=== PATIENT | female | born 1955 | race African-American/Black ===

== ENCOUNTER 2016-11-26 22:13 | Emergency (ER) | payer OTHER ==
[~2016-11-26] VITALS: Ht 162.6 cm; Wt 81.6 kg
[~2016-11-26 22:13] MED LIST: ATENOLOL50 M1 PO; COZAAR25 MG PO; DIOVAN320 MG PO; METHOCARBAMOL500 M1 PO; NORCO 10/325 MG1 TAB PO; PRAZOSIN HCL1 M1 PO; PRILOSEC40 MG PO; SOMA350 MG PO; VICODIN ES 7501 TA1 PO
[2016-11-26 22:44] VITALS: BP 155/95
--- NOTE | 2016-11-26 23:18 | NUR ---
AMBULATED TO ER BED 4
--- NOTE | 2016-11-26 23:24 | NUR ---
PATIENT PRESENTS TO ED WITH great rt toe pain . PT DENIES N/V/D; SKIN IS PINK/WARM/DRY; AAOX4 WITH EVEN AND STEADY GAIT; LUNGS CLEAR BL; HR EVEN AND REGULAR; PT DENIES ANY FEVER, CP, SOB, OR COUGH AT THIS TIME; PATIENT STATES PAIN OF 7/10 AT THIS TIME; VSS; PATIENT POSITIONED FOR COMFORT; HOB ELEVATED; BEDRAILS UP X2; BED DOWN. ER MD MADE AWARE OF PT STATUS.
[2016-11-27] MEDS ORDERED: KETOROLAC 60 MG/2 ML VIAL IM ONE (00:10)
--- NOTE | 2016-11-27 00:47 | NUR ---
Patient discharged with v/s stable. Written and verbal after care instructions given and explained. Patient verbalized understanding. Ambulatory with steady gait. All questions addressed prior to discharge. Advised to follow up with PMD.
[2016-11-27 00:53] VITALS: BP 124/76
[2017-03-31] MEDS ORDERED: COLACE100 M1 PO (11:26)
[2017-03-31] MEDS ORDERED: SIMETHICONE80 M2 PO (11:26)
[2017-03-31] MEDS ORDERED: METAMUCIL PACK3.4 GM PO (11:26)
[2017-03-31] MEDS ORDERED: COZAAR25 M1 PO (11:26)
[2017-03-31] MEDS ORDERED: K-DUR10 MEQ PO (11:26)
[2017-03-31] MEDS ORDERED: HCTZ PO (11:26)
== END 2016-11-27 00:53 | disposition home or self-care (01) ==
LOC: MED 22:13
DX: M79.674 Pain in right toe(s) (principal); M79.675 Pain in left toe(s); K21.9 Gastro-esophageal reflux disease without esophagitis; I10 Essential (primary) hypertension; Z98.890 Other specified postprocedural states
CPT/HCPCS: 96372; 99283; J1885

== ENCOUNTER 2016-12-04 19:08 | Emergency (ER) | payer OTHER ==
--- NOTE | 2016-12-04 20:34 | NUR ---
PATIENT LEFT WITHOUT BEING SEEN BY . NO FURTHER PROVIDED FOR PATIENT.
[2017-03-31] MEDS ORDERED: METAMUCIL PACK3.4 GM PO (11:26)
[2017-03-31] MEDS ORDERED: HCTZ PO (11:26)
[2017-03-31] MEDS ORDERED: COZAAR25 M1 PO (11:26)
[2017-03-31] MEDS ORDERED: K-DUR10 MEQ PO (11:26)
[2017-03-31] MEDS ORDERED: SIMETHICONE80 M2 PO (11:26)
[2017-03-31] MEDS ORDERED: COLACE100 M1 PO (11:26)
== END 2016-12-04 20:34 | disposition left against medical advice (07) ==
LOC: MED 19:08
DX: M79.671 Pain in right foot (principal); K21.9 Gastro-esophageal reflux disease without esophagitis; I10 Essential (primary) hypertension; Z53.21 Procedure and treatment not carried out due to patient leaving prior to being seen by health care provider

== ENCOUNTER 2016-12-07 13:08 | Emergency (ER) | payer OTHER ==
[~2016-12-07] VITALS: Ht 162.6 cm; Wt 83.5 kg
[2016-12-07 13:20] VITALS: BP 160/93
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
--- NOTE | 2016-12-07 13:25 | NUR ---
PT AMBULATED TO BED 6 AT THIS TIME.
--- NOTE | 2016-12-07 13:41 | NUR ---
ER MD DR. LEOS EVALUATING PT AT BEDSIDE.
[2016-12-07] MEDS ORDERED: IBUPROFEN 800 MG TAB PO ONE (14:35)
[2016-12-07 16:35] VITALS: BP 148/91
--- NOTE | 2016-12-07 16:35 | NUR ---
Patient discharged with BP 148/91; DENIES HEADACHE OR DIZZINESS AT THIS TIME; ER MD DR LEOS AWARE. Written and verbal after care instructions given and explained. Patient alert, oriented and verbalized understanding of instructions. Ambulatory with steady gait. All questions addressed prior to discharge. ID band removed. Patient advised to follow up with PMD. Rx of MOTRIN, BACITRACIN & KEFLEX given. Patient educated on indication of medication including possible reaction and side effects. Opportunity to ask questions provided and answered.
[2017-03-31] MEDS ORDERED: HCTZ PO (11:26)
[2017-03-31] MEDS ORDERED: COLACE100 M1 PO (11:26)
[2017-03-31] MEDS ORDERED: SIMETHICONE80 M2 PO (11:26)
[2017-03-31] MEDS ORDERED: METAMUCIL PACK3.4 GM PO (11:26)
[2017-03-31] MEDS ORDERED: COZAAR25 M1 PO (11:26)
[2017-03-31] MEDS ORDERED: K-DUR10 MEQ PO (11:26)
== END 2016-12-07 16:35 | disposition home or self-care (01) ==
LOC: MED 13:15
DX: Z48.01 Encounter for change or removal of surgical wound dressing (principal); K21.9 Gastro-esophageal reflux disease without esophagitis; I10 Essential (primary) hypertension
CPT/HCPCS: 36415; 73630; 80048; 85025; 90471; 90715; 99285; Q0092

== ENCOUNTER 2017-01-25 12:00 | Emergency (ER) | payer OTHER ==
[~2017-01-25] VITALS: Ht 160 cm; Wt 83.5 kg
[2017-01-25 12:02] VITALS: BP 110/75
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
--- NOTE | 2017-01-25 14:27 | NUR ---
DR PAYNE AT BEDSIDE
[2017-01-25] MEDS ORDERED: HYDROmorphone PFS 2 MG/ML SYR IM ONE (14:35)
--- NOTE | 2017-01-25 14:53 | NUR ---
PT LYING ON BED COMFORTABLY;NO ACUTE DISTRESS NOTED AT THIS TIME;WILL CONTINUE TO MONITOR PT.
[2017-01-25 15:53] VITALS: BP 131/77
[2017-03-31] MEDS ORDERED: K-DUR10 MEQ PO (11:26)
[2017-03-31] MEDS ORDERED: COLACE100 M1 PO (11:26)
[2017-03-31] MEDS ORDERED: COZAAR25 M1 PO (11:26)
[2017-03-31] MEDS ORDERED: HCTZ PO (11:26)
[2017-03-31] MEDS ORDERED: SIMETHICONE80 M2 PO (11:26)
[2017-03-31] MEDS ORDERED: METAMUCIL PACK3.4 GM PO (11:26)
== END 2017-01-25 15:52 | disposition home or self-care (01) ==
LOC: MED 12:00
DX: S16.1XXA Strain of muscle, fascia and tendon at neck level, initial encounter (principal); M54.42 Lumbago with sciatica, left side; K21.9 Gastro-esophageal reflux disease without esophagitis; I10 Essential (primary) hypertension; V89.2XXA Person injured in unspecified motor-vehicle accident, traffic, initial encounter; Y93.89 Activity, other specified; Y92.89 Other specified places as the place of occurrence of the external cause; Y99.8 Other external cause status; Z79.899 Other long term (current) drug therapy
CPT/HCPCS: 72050; 72072; 72110; 96372; 99284; J1170

== ENCOUNTER 2017-03-10 20:08 | Emergency (ER) | payer OTHER ==
[~2017-03-10] VITALS: Ht 162.6 cm; Wt 83.9 kg
[~2017-03-10 20:08] MED LIST changes: +ACET-3457 PO; +ATEN50TA2 PO; -ATENOLOL50 M1 PO; +CARI350T PO; -COZAAR25 MG PO; -DIOVAN320 MG PO; +LOSA25TA14 PO; +METH500T18 PO; -METHOCARBAMOL500 M1 PO; -NORCO 10/325 MG1 TAB PO; +OMEP40EC1 PO; +PRAZ1CAP PO; -PRAZOSIN HCL1 M1 PO; -PRILOSEC40 MG PO; -SOMA350 MG PO; +VALS320T2 PO; -VICODIN ES 7501 TA1 PO
[2017-03-10 20:12] VITALS: BP 161/101
--- NOTE | 2017-03-10 20:23 | NUR ---
PT TAKEN TO BED 3
--- NOTE | 2017-03-10 20:32 | NUR ---
61Y BIB SELF C/O AB PAIN X 1 WEEK, BUT GOT WORSE TODAY. PT STATES SHE HAD 3 VOMIT EPISODES NO BLOOD, 8/10 PAIN. MEDICAL HX HTN AND SKELTAL BULGES. PT IS AA0X4, DENIES ANY SOB, CP, AT THE MOMENT. BREATHING IS UNLABORED.
--- NOTE | 2017-03-10 21:07 | NUR ---
Dr. Mcdonald evaluating patient at bedside.
--- NOTE | 2017-03-10 21:46 | NUR ---
Ultrasound at bedside.
[2017-03-10] MEDS: ONDANSETRON 4 MG ODT PO ONE (22:48)
[2017-03-10 23:00] VITALS: BP 141/88
--- NOTE | 2017-03-10 23:01 | NUR ---
Patient discharged with v/s stable. Written and verbal after care instructions given and explained. Patient alert, oriented and verbalized understanding of instructions. Ambulatory with steady gait. All questions addressed prior to discharge. ID band removed. Patient advised to follow up with PMD. Rx of ZOFRAN ODT given. Patient educated on indication of medication including possible reaction and side effects. Opportunity to ask questions provided and answered.
== END 2017-03-10 23:01 | disposition home or self-care (01) ==
LOC: MED 20:08
DX: A08.4 Viral intestinal infection, unspecified (principal); K21.9 Gastro-esophageal reflux disease without esophagitis; I10 Essential (primary) hypertension
CPT/HCPCS: 76705; 81002; 81025; 99284; Q0092; S0119

== ENCOUNTER 2017-03-30 02:47 | Inpatient (IN) | payer OTHER ==
[~2017-03-30] VITALS: Ht 162.6 cm; Wt 82.6 kg
[2017-03-30 02:49] VITALS: BP 146/79
--- NOTE | 2017-03-30 03:06 | NUR ---
PT TAKEN TO BED 7
--- NOTE | 2017-03-30 03:10 | NUR ---
PT IS 61/F BIB SELF TO ED WITH C/O CHEST PAIN, SOB, NAUSEA, VOMITING, AND COSTIPATION X 6 DAYS. PT STATES MED HX HTN, HIATAL HERNIA. DOES NOT KNOW NAME OF MEDS. DENIES D; SKIN IS PINK/WARM/DRY; AAOX4 WITH EVEN AND STEADY GAIT; LUNGS CLEAR BL; HR EVEN AND REGULAR; PT DENIES ANY FEVER, SOB, OR COUGH AT THIS TIME; PATIENT STATES PAIN OF 9/10 AT THIS TIME; VSS; PATIENT POSITIONED FOR COMFORT; HOB ELEVATED; BEDRAILS UP X2; BED DOWN. ER MD MADE AWARE OF PT STATUS.
--- NOTE | 2017-03-30 03:17 | NUR ---
Dr. Sanchez evaluating patient at bedside.
[2017-03-30] MEDS ORDERED: MAGNESIUM CITRATE 300 ML BTL PO ONE (03:20)
[2017-03-30] MEDS ORDERED: ONDANSETRON 4 MG/2 ML VIAL IVP ONE (03:20)
[2017-03-30] MEDS ORDERED: NACL 0.9% 1,000 ML IV ONE (03:20)
--- NOTE | 2017-03-30 04:07 | NUR ---
PT TAKEN TO XRAY
[2017-03-30 04:09] LABS: HEMATOCRIT 35.6 % (36-48); MEAN CORPUSCULAR HEMOGLOBIN 31 pg (27-31); MEAN CORPUSCULAR HGB CONC 34 g/dL (33-37); MEAN CORPUSCULAR VOLUME 92 fL (80-94); PLATELET COUNT (AUTO) 266 K/uL (140-450); RED BLOOD CELL COUNT(AUTO) 3.88 MIL/uL (4.20-5.40); RED CELL DISTRIBUTION WIDTH 13.5 % (11.6-13.7); WHITE BLOOD COUNT (AUTO) 10.9 K/uL (4.8-10.8)
[2017-03-30 04:14] LABS: LYMPHOCYTES % (MANUAL) 29 % (20-46); MONOCYTES % (MANUAL) 4 % (5-12); NEUTROPHILS % (MANUAL) 67 (43-65)
[2017-03-30 04:15] LABS: ALBUMIN 3.3 g/dL (3.4-5.0); ANION GAP 6.3 (8-16); CALCIUM 9.1 mg/dL (8.5-10.1); CREATININE 1.2 mg/dL (0.6-1.3); TOTAL BILIRUBIN 0.1 mg/dL (0.0-1.0); TOTAL PROTEIN, SERUM 7.4 g/dL (6.4-8.2)
--- NOTE | 2017-03-30 04:20 | NUR ---
PT RETURN FROM XRAY
[2017-03-30 04:21] LABS: CARBON DIOXIDE 42.1 mmol/L (21-32); POTASSIUM 2.4 mmol/L (3.5-5.1)
--- NOTE | 2017-03-30 04:30 | NUR ---
PT ASSISTED BACK IN BED FROM RESTROOM. NO SOB NOTED AT THIS TIME
[2017-03-30] MEDS ORDERED: POTASSIUM CHL 40 MEQ/ D5-1/2NS 1,000 ML IV ONE (04:40)
--- NOTE | 2017-03-30 05:07 | NUR ---
PT RETURN FROM CT
--- NOTE | 2017-03-30 05:16 | NUR ---
PT MOVD TO BED 5
--- NOTE | 2017-03-30 05:22 | NUR ---
PT RESTING IN BED. NO SOB NOTED AT THIS TIME.
--- NOTE | 2017-03-30 05:34 | NUR ---
PRE HOUSE SUP MOHAMMED, PT IS ON ER HOLD UNTIL 6AM. ER MD DR PAYNE NOTIFIED
[2017-03-30] MEDS ORDERED: ACETAMINOPHEN 325 MG TAB PO PRN (05:35)
[2017-03-30] MEDS ORDERED: HYDROcodone/APAP 5/325 MG 1 TAB TAB PO PRN (05:35)
[2017-03-30] MEDS: DEXT 5% /NACL 0.9% 1,000 ML IV SCH ×2 (05:35→15:51)
[2017-03-30] MEDS ORDERED: LORazepam 2 MG/ML VIAL IVP PRN (05:35)
[2017-03-30] MEDS ORDERED: ONDANSETRON 4 MG/2 ML VIAL IVP PRN (05:35)
--- NOTE | 2017-03-30 06:21 | NUR ---
Patient will be admitted to care of DR CAMPOS. Admited to TELE. Will go to [id number]. Belongings list completed. Report to KAYDEN MORENO.
--- NOTE | 2017-03-30 06:30 | NUR ---
ADMITTED THIS 61 Y/O FEMALE FROM ER VIA [facility], WITH A DX OF ABDOMINAL PAIN WITH HYPOKALEMIA. ON TELE MONITOR. PT AAOX4. RESPIRATION EVEN AND UNLABORED, DENIES PAIN AT THIS TIME. NO S/S OF RESP DISTRESS. IV ACCESS TO LEFT HAND GAUGE 22, NO S/S OF INFILTRATION. PT AMBULATORY WITH STEADY GAIT. SKIN INTACT. ORIENTED PT TO CALL LIGHT, BED, PHONE, TV, BATHROOM, VISITING HOURS. MRSA COLLECTED AND SENT TO LAB. WILL ENDORSE TO NEXT SHIFT FOR THE COMPLETION OF ADMISSION. VS: 97.7 84 19 146/87 96% ROOM AIR.
--- NOTE | 2017-03-30 07:05 | NUR ---
RECEIVED PT REPORT AT BEDSIDE FROM NIGHT NURSE. PT IS AAOX4 AND SHOWS NO S/S OF DISTRESS NOTED ON ROOM AIR. PT HAS NOTED IV ON THE L HAND WITH IVF RUNNING. PT SKIN IS INTACT. PT BED IS LOWERED WITH CALL LIGHT WITHIN REACH.
[2017-03-30 08:23] VITALS: BP 133/68
[2017-03-30] MEDS ORDERED: ACETAMINOPHEN PO SCH (09:00)
[2017-03-30] MEDS ORDERED: LOSARTAN 25 MG TAB PO SCH (09:00)
[2017-03-30] MEDS ORDERED: [UNRECOGNIZED DRUG - OTHER] PO SCH (09:00)
[2017-03-30] MEDS ORDERED: VALSARTAN 80 MG TAB PO SCH (09:00)
--- NOTE | 2017-03-30 09:30 | NUR ---
PATIENT HAS BEEN SCREENED AND CATEGORIZED MODERATE NUTRITION RISK. PATIENT WILL BE SEEN WITHIN 3-5 DAYS OF ADMISSION. 04/02/17 - 04/04/17 GUERR[address] FIERRO MBA, RD
--- NOTE | 2017-03-30 09:30 | NUR ---
ADMINISTERED SCHEDULED MEDICATIONS. PT TOLERATED WELL. PT SHOWS NO S/S OF DISTRESS ON ROOM AIR.
[2017-03-30] MEDS: METHOCARBAMOL 500 MG TAB PO SCH ×2 (09:39→20:18)
[2017-03-30] MEDS: ATENOLOL 50 MG TAB PO SCH (09:40)
[2017-03-30] MEDS: HYDROcodone/APAP 5/325 MG 1 TAB TAB PO SCH ×2 (09:40→20:30)
[2017-03-30] MEDS: PRAZOSIN 1 MG CAP PO SCH ×4 (09:41→16:36)
[2017-03-30] MEDS: CARISOPRODOL 350 MG TAB PO SCH (09:41)
[2017-03-30] MEDS: PANTOPRAZOLE 40 MG TABEC PO SCH (09:41)
[2017-03-30] MEDS ORDERED: POTASSIUM CHLORIDE 10 MEQ TABER PO SCH (10:50)
[2017-03-30 12:00] VITALS: BP 110/76
--- NOTE | 2017-03-30 12:40 | NUR ---
PT AMB TO RESTROOM WITH STEADY GAIT. PT HAD A BM.
[2017-03-30] MEDS ORDERED: SIMETHICONE 80 MG TAB.CHEW PO SCH (12:45)
--- NOTE | 2017-03-30 12:50 | NUR ---
ADMINISTERED SCHEDULED MEDICATION. PT TOLERATED WELL. PT HAD ABD PAIN AND AMB TO RESTROOM AGAIN.
--- NOTE | 2017-03-30 12:52 | NUR ---
DID NOT ADMINISTER SCHEDULED MEDICATION OF MINIPRESS PRAZOSIN 1 MG PO. PT BLOOD PRESSURE WAS 100/64 HR 81. PT REFUSED TO TAKE BLOOD PRESSURE MED.
[2017-03-30] MEDS: MORPHINE SULFATE 2 MG/ML SYR IVP PRN ×2 (14:00→20:19)
--- NOTE | 2017-03-30 14:00 | NUR ---
PT C/O PAIN 7/10 IN THE ABD. ADMINISTERED PRN PAIN MED. PT SHOWS NO S/S OF DISTRESS ON ROOM AIR.
--- NOTE | 2017-03-30 15:26 | NUR ---
PT IN BED TALKING ON THE PHONE. PT SHOWS NO S/S OF DISTRESS NOTED.
[2017-03-30 16:03] VITALS: BP 134/80
[2017-03-30] MEDS: PSYLLIUM 12.2 GM/PKT PO SCH (16:06)
--- NOTE | 2017-03-30 16:06 | NUR ---
PT REFUSE METAMUCIL SCHEDULED MEDICATION. PT STATES SHE HAS GONE TO THE RESTROOM AT LEAST 10 TIMES THIS MORNING.
--- NOTE | 2017-03-30 17:43 | NUR ---
PT IS IN BED AND SHOWS NO S/S OF DISTRESS ON ROOM AIR.
--- NOTE | 2017-03-30 18:50 | NUR ---
PAGED DR Adam CAMPOS WILL WAIT FOR CALL BACK.
--- NOTE | 2017-03-30 18:50 | NUR ---
PT BEING SEEN BY DR COLLINS. ADVISES TO LET DR Adam CAMPOS KNOW HE RECOMMENDS ADDITIONAL POTASSIUM ORDERS FOR PT K OF 2.4.
--- NOTE | 2017-03-30 19:20 | NUR ---
GAVE REPORT TO NIGHT NURSE. PT ENDORSED IN STABLE CONDITION.
--- NOTE | 2017-03-30 19:25 | NUR ---
RECEIVED PT AWAKE PRESENTLY FINISHING HER DINNER, TOLERATING WELL, NO N/V NOTED, IVF INFUSING WELL, PLAN OF CARE DISCUSSED, SAFETY MEASURES IN PLACE, CALL LIGHT WITHIN REACH.
--- NOTE | 2017-03-30 19:35 | NUR ---
DR Donato CAMPOS CALLED BACK. RECEIVED ORDERS. WILL FOLLOW THROUGH. LUIS MONIQUE IS AWARE.
[2017-03-30] MEDS ORDERED: KCL 20 MEQ/WATER INJ PREMIX 300 ML IV SCH (19:40)
[2017-03-30] MEDS: POTASSIUM CHLORIDE 10 MEQ TABER PO SCH (20:18)
--- NOTE | 2017-03-30 20:30 | NUR ---
DUE PO MEDICATIONS ADMINISTERED, MEDICATED PRN FOR PAIN WITH MORPHINE IVP, 1ST BAG OF 20 MEQ K-RIDER STARTED, MONITORED CLOSELY.
[2017-03-30] MEDS ORDERED: DOCUSATE SODIUM 100 MG GELCAP PO SCH (21:00)
--- NOTE | 2017-03-30 21:30 | NUR ---
COMPLAINING OF BURNING SENSATION ON THE IV SITE DUE TO K-RIDER, RATE DECREASE FOR NOW, AMBULATORY TO BR WITH STEADY GAIT, MONITORED CLOSELY.
[2017-03-31] VITALS: BP 125/76
--- NOTE | 2017-03-31 00:30 | NUR ---
2ND BAG OF 20 MEQ K-RIDER STARTED, MONITORED CLOSELY.
--- NOTE | 2017-03-31 02:36 | NUR ---
3RD BAG OF 20 MEQ K-RIDER STARTED, MONITORED CLOSELY.
[2017-03-31] MEDS: DEXT 5% /NACL 0.9% 1,000 ML IV SCH ×2 (02:49→11:35)
--- NOTE | 2017-03-31 05:30 | NUR ---
K-RIDER DONE, ENVIRONMENTAL PROJECT MANAGER MARITO MADE AWARE TO DRAW BMP 2 HOURS AFTER K-RIDER WHICH IS 0725, WILL ENDORSE, NO EPISODE OF LOOSE STOOL THE WHOLE SHIFT, MONITORED CLOSELY.
--- NOTE | 2017-03-31 07:10 | NUR ---
PT SLEEPING, NO SIGNS OF DISTRESS, REPORT GIVEN TO KAYDEN SHANKAR FOR CONTINUITY OF CARE.
--- NOTE | 2017-03-31 07:12 | NUR ---
RECEIVED PT FROM NIGHT NURSE AT BEDSIDE. PT IS SLEEPING AND SHOWS NO S/S OF DISTRESS ON ROOM AIR. PT HAS IVF RUNNING ON THE R HAND. PT SKIN IS INTACT. PT BED IS LOWERED WITH CALL LIGHT WITHIN REACH.
[2017-03-31 08:00] VITALS: BP 146/91
[2017-03-31 08:25] LABS: BASOPHILS # (AUTO) 0.1 K/uL (0.00-0.22); BASOPHILS % (AUTO) 1.3 % (0.0-2.0); EOSINOPHILS # (AUTO) 0.2 K/uL (0-0.4); HEMATOCRIT 33.6 % (36-48); HEMOGLOBIN 10.9 g/dL (12.0-16.0); LYMPHOCYTES # (AUTO) 2.6 K/uL (2.5-16.5); LYMPHOCYTES % (AUTO) 32.2 % (20.5-51.1); MEAN CORPUSCULAR HEMOGLOBIN 30 pg (27-31); MEAN CORPUSCULAR HGB CONC 32 g/dL (33-37); MEAN CORPUSCULAR VOLUME 93 fL (80-94); MONOCYTES # (AUTO) 0.6 K/uL (0.8-1.0); NEUTROPHILS # (AUTO) 4.7 K/uL (1.8-7.7); NEUTROPHILS % (AUTO) 56.5 % (42.2-75.2); PLATELET COUNT (AUTO) 231 K/uL (140-450); RED BLOOD CELL COUNT(AUTO) 3.62 MIL/uL (4.20-5.40); RED CELL DISTRIBUTION WIDTH 13.7 % (11.6-13.7); WHITE BLOOD COUNT (AUTO) 8.2 K/uL (4.8-10.8)
[2017-03-31] MEDS: PSYLLIUM 12.2 GM/PKT PO SCH ×2 (08:56→12:00)
[2017-03-31] MEDS: ATENOLOL 50 MG TAB PO SCH (08:57)
[2017-03-31] MEDS: PRAZOSIN 1 MG CAP PO SCH (08:57)
[2017-03-31] MEDS: PANTOPRAZOLE 40 MG TABEC PO SCH (08:57)
[2017-03-31] MEDS: HYDROcodone/APAP 5/325 MG 1 TAB TAB PO SCH (08:58)
[2017-03-31] MEDS: METHOCARBAMOL 500 MG TAB PO SCH (08:58)
[2017-03-31] MEDS ORDERED: HYDROCHLOROTHIAZIDE 25 MG TAB PO SCH (09:00)
[2017-03-31] MEDS ORDERED: LOSARTAN 25 MG TAB PO SCH (09:00)
--- NOTE | 2017-03-31 09:00 | NUR ---
ADMINISTERED SCHEDULED MEDICATIONS. PT TOLERATED WELL. PT DENIES PAIN. PT IS AAOX4 AND RESTING IN BED COMFORTABLY. PT SHOWS NO S/S OF DISTRESS NOTED ON ROOM AIR.
[2017-03-31 09:16] LABS: ANION GAP 8.9 (8-16); CALCIUM 7.9 mg/dL (8.5-10.1); CARBON DIOXIDE 33.8 mmol/L (21-32); POTASSIUM 3.7 mmol/L (3.5-5.1)
[2017-03-31] MEDS: POTASSIUM CHLORIDE 10 MEQ TABER PO SCH (09:22)
[2017-03-31] MEDS: CARISOPRODOL 350 MG TAB PO SCH (09:23)
[2017-03-31] MEDS ORDERED: ORE25 PO (11:26)
[2017-03-31] MEDS ORDERED: POTA10TA10 PO (11:26)
[2017-03-31] MEDS ORDERED: SIME80CT27 PO (11:26)
[2017-03-31] MEDS ORDERED: METPCK PO (11:26)
[2017-03-31] MEDS ORDERED: DOCU-67 PO (11:26)
[2017-03-31] MEDS ORDERED: LOSA25TA1 PO (11:26)
--- NOTE | 2017-03-31 11:45 | NUR ---
PT STATED SHE WANTED TO LEAVE AND CHANGE ROOMS. PT WAS SEEN BY DR Adam CAMPOS AND WAS NOTIFIED SHE WAS OKAY TO BE DISCHARGED. PT STATES "THESE PEOPLE ARE UNPROFESSIONAL". RN STATED PT TO CALM DOWN AND THAT I WOULD BE HERE GET HER THINGS SITUATED FOR HER DISCHARGE. PT REFUSED AND SAID " I WILL DO IT ON MY OWN."
--- NOTE | 2017-03-31 12:10 | NUR ---
PT WAS DISCHARGED. PT REFUSED TO SIGN ALL DISCHARGE PAPERWORK. PT WAS GIVEN DISCHARGE INSTRUCTIONS AND PRESCRIPTIONS. PT DID NOT WANT TO HAVE EACH DISCHARGE PAPERWORK EXPLAINED. I BRIEFLY WENT OVER NEW PRESCRIPTIONS EDUCATION. PT WAS GIVEN MONOGRAPH OF EACH NEW MEDICATIONS SHE WAS PRESCRIBED. ALL BELONGINGS AND PRESCRIPTIONS IN PATIENTS POSSESSION. IV WAS DISCONTINUED WITH CANNULA INTACT. OFFERED PATIENT WHEELCHAIR PT REFUSED. I ASKED PT I WOULD WALK HER OFF THE UNIT PT STATED " I DON'T WANT YOU TO WALK ME OUT. I CAN FOLLOW THE EXIT SIGNS." PT WAS WALKED DOWN THE HALLWAY AND WAS DIRECTED TO THE LOBBY. PT AMB OF THE UNIT WITH STEADY GAIT. PT IN STABLE CONDITION.
== END 2017-03-31 12:10 | disposition home or self-care (01) | DRG 389 ==
LOC: MED 02:47 → MTU 05:26
PROVIDERS: ADMIT Preventive Medicine Preventive Medicine/Occupational Environmental Medicine; ATTEND Preventive Medicine Preventive Medicine/Occupational Environmental Medicine
DX: K56.41 Fecal impaction (principal); K57.92 Diverticulitis of intestine, part unspecified, without perforation or abscess without bleeding; E87.6 Hypokalemia; R10.9 Unspecified abdominal pain; D72.829 Elevated white blood cell count, unspecified; N18.9 Chronic kidney disease, unspecified; E88.09 Other disorders of plasma-protein metabolism, not elsewhere classified; D64.9 Anemia, unspecified; R73.9 Hyperglycemia, unspecified; E83.51 Hypocalcemia; K21.9 Gastro-esophageal reflux disease without esophagitis; I12.9 Hypertensive chronic kidney disease with stage 1 through stage 4 chronic kidney disease, or unspecified chronic kidney disease; G89.29 Other chronic pain; K57.90 Diverticulosis of intestine, part unspecified, without perforation or abscess without bleeding; J45.909 Unspecified asthma, uncomplicated; Z79.899 Other long term (current) drug therapy
CPT/HCPCS: 36415; 74022; 80048; 80053; 85025; 87081; 93005; 96365; 96366; 96375; 99285; J2270; J2405; J3480; J7030; J7042

== ENCOUNTER 2017-08-17 09:51 | Emergency (ER) | payer OTHER ==
[~2017-08-17] VITALS: Ht 162.6 cm; Wt 80.3 kg
[~2017-08-17 09:51] MED LIST changes: +DOCU-299 PO; +LOSA25TA1 PO; -LOSA25TA14 PO; +METPCK PO; +ORE25 PO; +POTA10TE30 PO; +SIME80CT27 PO; -VALS320T2 PO
[2017-08-17 10:08] VITALS: BP 136/89
--- NOTE | 2017-08-17 10:10 | NUR ---
Patient ambulated to bed 11. RN evaluating patient at bedside.
--- NOTE | 2017-08-17 10:28 | NUR ---
61 M BIB SELF WITH C/O N/V/D X 4 DAYS WITH "PRODUCTIVE" COUGH WITH WHITE PHLEGM; PT ALSO REPORT OF 8/10 "BURNING" UPPER BACK AND CHEST WALL PAIN; AOX4 WITH EVEN AND STEADY GAIT; RR ARE EVEN AND UNLABORED; PATIENT POSITIONED FOR COMFORT AND CHANGE INTO A GOWN; HOB ELEVATED; BED DOWN. ER MD MADE AWARE OF PT STATUS.
--- NOTE | 2017-08-17 10:39 | NUR ---
Dr. Olson evaluating patient at bedside.
[2017-08-17] MEDS ORDERED: KETOROLAC 30 MG/ML VIAL IVP ONE (10:45)
[2017-08-17] MEDS ORDERED: ONDANSETRON 4 MG/2 ML VIAL IVP ONE (10:45)
[2017-08-17] MEDS ORDERED: NACL 0.9% 1,000 ML IV ONE (10:45)
--- NOTE | 2017-08-17 10:52 | NUR ---
EKG completed at bedside by EMT.
[2017-08-17 10:59] LABS: BASOPHILS # (AUTO) 0.6 K/uL (0.00-0.22); BASOPHILS % (AUTO) 4.2 % (0.0-2.0); EOSINOPHILS # (AUTO) 0.1 K/uL (0-0.4); EOSINOPHILS % (AUTO) 0.7 % (0.0-4.0); HEMOGLOBIN 13.5 g/dL (12.0-16.0); LYMPHOCYTES # (AUTO) 2.3 K/uL (2.5-16.5); LYMPHOCYTES % (AUTO) 17.1 % (20.5-51.1); MEAN CORPUSCULAR HEMOGLOBIN 30 pg (27-31); MEAN CORPUSCULAR HGB CONC 33 g/dL (33-37); MEAN CORPUSCULAR VOLUME 91 fL (80-94); MONOCYTES % (AUTO) 7.2 % (1.7-9.3); NEUTROPHILS # (AUTO) 9.6 K/uL (1.8-7.7); NEUTROPHILS % (AUTO) 70.8 % (42.2-75.2); PLATELET COUNT (AUTO) 226 K/uL (140-450); RED BLOOD CELL COUNT(AUTO) 4.51 MIL/uL (4.20-5.40); RED CELL DISTRIBUTION WIDTH 14.9 % (11.6-13.7); WHITE BLOOD COUNT (AUTO) 13.6 K/uL (4.8-10.8)
--- NOTE | 2017-08-17 11:08 | NUR ---
XRAY BY BEDSIDE
[2017-08-17 11:13] LABS: PROTHROMBIN TIME 10.9 secs (10.8-13.4)
[2017-08-17 11:16] LABS: ANION GAP 13.2 (8-16); CARBON DIOXIDE 30.7 mmol/L (21-32); CREATININE 1.4 mg/dL (0.6-1.3); TOTAL BILIRUBIN 0.6 mg/dL (0.0-1.0)
[2017-08-17 11:20] LABS: POTASSIUM 2.9 mmol/L (3.5-5.1)
[2017-08-17] MEDS ORDERED: POTASSIUM CHLORIDE 10 MEQ TABER PO ONE (11:20)
[2017-08-17] MEDS ORDERED: POTASSIUM CHLORIDE 20% 40 MEQ/15 ML UDC PO ONE (11:30)
[2017-08-17] MEDS ORDERED: POTASSIUM CHLORIDE 20% 40 MEQ/15 ML UDC ONE (11:35)
--- NOTE | 2017-08-17 12:15 | NUR ---
Patient discharged with v/s stable. Written and verbal after care instructions given and explained. Patient alert, oriented and verbalized understanding of instructions. Ambulatory with steady gait. All questions addressed prior to discharge. ID band removed. Patient advised to follow up with PMD. Rx of Motrin, Zofran, and Cipro given. Patient educated on indication of medication including possible reaction and side effects. Opportunity to ask questions provided and answered.
[2017-08-17 12:16] VITALS: BP 142/81
== END 2017-08-17 12:15 | disposition home or self-care (01) ==
LOC: MED 09:51
DX: R11.2 Nausea with vomiting, unspecified (principal); R19.7 Diarrhea, unspecified; K21.9 Gastro-esophageal reflux disease without esophagitis; I10 Essential (primary) hypertension; Z90.89 Acquired absence of other organs; Z79.899 Other long term (current) drug therapy
CPT/HCPCS: 36415; 71010; 80053; 81002; 83880; 84484; 85025; 85610; 85730; 93005; 96361; 96374; 96375; 99285; J1885; J2405; J7030; Q0092

== ENCOUNTER 2021-04-02 02:36 | Observation (INO) | payer OTHER, SELFPAY ==
[~2021-04-02] VITALS: Ht 160 cm; Wt 80.3 kg
[~2021-04-02 02:36] MED LIST changes: +ALBU0.0912 IH; +METH-1866 PO; -METH500T18 PO; +METO25TE2 PO; +OMEP20TC12 PO; -OMEP40EC1 PO; +SUCR1TAB56 PO
[2021-04-02 02:42] VITALS: BP 127/80
[2021-04-02] MEDS ORDERED: ONDANSETRON 4 MG/2 ML VIAL IVP ONE (02:55)
[2021-04-02] MEDS ORDERED: KETOROLAC 30 MG/ML VIAL IVP ONE (02:55)
[2021-04-02] MEDS ORDERED: NACL 0.9% 1,000 ML IV ONE (02:55)
[2021-04-02 03:44] LABS: BASOPHILS % (AUTO) 0.5 % (0.0-2.0); EOSINOPHILS # (AUTO) 0.2 K/uL (0-0.4); EOSINOPHILS % (AUTO) 2.6 % (0.0-4.0); HEMATOCRIT 29.3 % (36-48); HEMOGLOBIN 9.9 g/dL (12.0-16.0); LYMPHOCYTES # (AUTO) 1.6 K/uL (2.5-16.5); LYMPHOCYTES % (AUTO) 16.7 % (20.5-51.1); MEAN CORPUSCULAR HEMOGLOBIN 34 pg (27-31); MEAN CORPUSCULAR HGB CONC 34 g/dL (33-37); MEAN CORPUSCULAR VOLUME 99.9 fL (80-94); MONOCYTES # (AUTO) 0.8 K/uL (0.8-1.0); MONOCYTES % (AUTO) 8.2 % (1.7-9.3); PLATELET COUNT (AUTO) 353 K/uL (140-450); RED BLOOD CELL COUNT(AUTO) 2.93 MIL/uL (4.20-5.40); RED CELL DISTRIBUTION WIDTH 14.9 % (11.6-13.7); WHITE BLOOD COUNT (AUTO) 9.7 K/uL (4.8-10.8)
[2021-04-02 03:52] LABS: PROTHROMBIN TIME 10.1 secs (10.8-13.4)
[2021-04-02 03:59] LABS: ALBUMIN 3.4 g/dL (3.4-5.0); ANION GAP 15.4 (8-16); CARBON DIOXIDE 28.4 mmol/L (21-32); CREATININE 1.3 mg/dL (0.6-1.3); TOTAL BILIRUBIN 0.2 mg/dL (0.0-1.0)
[2021-04-02 04:05] LABS: POTASSIUM 2.8 mmol/L (3.5-5.1)
[2021-04-02] MEDS ORDERED: POTASSIUM CHL 20 MEQ / DEXT 5% 1,000 ML IV ONE (04:05)
[2021-04-02] MEDS ORDERED: POTASSIUM CHLORIDE 20% 40 MEQ/15 ML UDC PO ONE (04:05)
[2021-04-02] MEDS ORDERED: POTASSIUM CHL 20 MEQ/D5-1/2NS 1,000 ML IV ONE (04:12)
[2021-04-02] MEDS ORDERED: MORPHINE SULFATE 4 MG/ML SYR IVP ONE (05:15)
[2021-04-02] MEDS ORDERED: MAG SULF 2000 MG/WATER PREMIX 50 ML IV ONE ×2 (05:25→05:28)
[2021-04-02] MEDS ORDERED: FURO-572 PO (06:35)
[2021-04-02] MEDS ORDERED: ACETAMINOPHEN 325 MG TAB PO PRN (07:45)
[2021-04-02] MEDS ORDERED: DOCUSATE SODIUM 100 MG GELCAP PO PRN (07:45)
[2021-04-02] MEDS ORDERED: POTASSIUM CHLORIDE 40 MEQ, LIDOCAINE MPF 1% 25 MG in NACL 0.9% 250 ML IV PRN (07:45)
[2021-04-02] MEDS ORDERED: SODIUM PHOS / POTASSIUM PHOS 1 PKT PDR PO PRN (07:45)
[2021-04-02] MEDS ORDERED: ONDANSETRON 4 MG/2 ML VIAL IM/IVP PRN (07:45)
[2021-04-02 08:00] LABS: APPEARANCE,URINE CLEAR (CLEAR); BILIRUBIN,URINE NEGATIVE (NEGATIVE); BLOOD, URINE NEGATIVE (NEGATIVE); COLOR,URINE YELLOW (YELLOW); LEUKOCYTE ESTERASE ,URINE NEGATIVE (NEGATIVE); NITRITE, URINE NEGATIVE (NEGATIVE); UGLUCOSE NEGATIVE (NEGATIVE)
[2021-04-02 08:08] LABS: MAGNESIUM 1.3 mg/dL (1.8-2.4); PHOSPHORUS 3.1 mg/dL (2.5-4.9)
[2021-04-02] MEDS: HYDROcodone/APAP 5/325 MG 1 TAB TAB PO PRN ×2 (08:19→12:58)
[2021-04-02 08:30] VITALS: BP 117/67
[2021-04-02] MEDS: atenoloL 50 MG TAB PO SCH (09:00)
[2021-04-02] MEDS: NACL 0.9% 1,000 ML IV SCH ×2 (09:11→21:30)
[2021-04-02] MEDS: hydroCHLOROthiazide 25 MG TAB PO SCH (09:46)
[2021-04-02] MEDS: FUROSEMIDE 20 MG TAB PO SCH (09:46)
[2021-04-02] MEDS: PANTOPRAZOLE 40 MG INJ VIAL IVP SCH (09:47)
[2021-04-02] MEDS: LOSARTAN 25 MG TAB PO SCH (09:47)
[2021-04-02] MEDS: MORPHINE SULFATE 2 MG/ML SYR IVP PRN ×3 (09:50→22:40)
[2021-04-02] MEDS ORDERED: POLYETHYLENE GLYCOL 17 GM/PKT PO SCH (12:00)
[2021-04-02] MEDS: DOCUSATE SODIUM 100 MG GELCAP PO SCH ×2 (12:10→20:35)
[2021-04-02] MEDS: MAG SULF 2000 MG/WATER PREMIX 50 ML IV PRN (12:10)
[2021-04-02 12:13] LABS: ANION GAP 13.7 (8-16); CARBON DIOXIDE 29.7 mmol/L (21-32); CREATININE 1.1 mg/dL (0.6-1.3); POTASSIUM 3.4 mmol/L (3.5-5.1)
[2021-04-02] MEDS: CYCLOBENZAPRINE 10 MG TAB PO PRN (14:38)
[2021-04-02 16:00] VITALS: BP 122/61
[2021-04-02 20:00] VITALS: BP 125/74
[2021-04-02] MEDS: NACL 0.45% 1,000 ML IV SCH (22:33)
[2021-04-03] VITALS: BP 115/61
[2021-04-03 04:00] VITALS: BP 115/54
[2021-04-03] MEDS: PANTOPRAZOLE 40 MG INJ VIAL IVP SCH ×2 (06:00→09:37)
[2021-04-03 06:53] LABS: ANION GAP 9.8 (8-16); CARBON DIOXIDE 30.3 mmol/L (21-32); CREATININE 1.1 mg/dL (0.6-1.3); POTASSIUM 3.1 mmol/L (3.5-5.1)
[2021-04-03] MEDS: HYDROcodone/APAP 5/325 MG 1 TAB TAB PO PRN ×2 (06:53→11:02)
[2021-04-03 07:03] LABS: BASOPHILS % (AUTO) 0.4 % (0.0-2.0); EOSINOPHILS # (AUTO) 0.3 K/uL (0-0.4); EOSINOPHILS % (AUTO) 4.2 % (0.0-4.0); HEMATOCRIT 28.3 % (36-48); HEMOGLOBIN 9.2 g/dL (12.0-16.0); LYMPHOCYTES # (AUTO) 1.5 K/uL (2.5-16.5); LYMPHOCYTES % (AUTO) 23.6 % (20.5-51.1); MEAN CORPUSCULAR HEMOGLOBIN 33 pg (27-31); MEAN CORPUSCULAR HGB CONC 33 g/dL (33-37); MEAN CORPUSCULAR VOLUME 101.4 fL (80-94); MONOCYTES # (AUTO) 0.7 K/uL (0.8-1.0); MONOCYTES % (AUTO) 10.6 % (1.7-9.3); NEUTROPHILS # (AUTO) 3.8 K/uL (1.8-7.7); NEUTROPHILS % (AUTO) 61.2 % (42.2-75.2); PLATELET COUNT (AUTO) 299 K/uL (140-450); RED BLOOD CELL COUNT(AUTO) 2.79 MIL/uL (4.20-5.40); RED CELL DISTRIBUTION WIDTH 14.6 % (11.6-13.7); WHITE BLOOD COUNT (AUTO) 6.3 K/uL (4.8-10.8)
[2021-04-03 08:00] VITALS: BP 119/69
[2021-04-03] MEDS: LOSARTAN 25 MG TAB PO SCH (09:36)
[2021-04-03] MEDS: hydroCHLOROthiazide 25 MG TAB PO SCH (09:37)
[2021-04-03] MEDS: atenoloL 50 MG TAB PO SCH (09:38)
[2021-04-03] MEDS: FUROSEMIDE 20 MG TAB PO SCH (09:38)
[2021-04-03] MEDS: CYCLOBENZAPRINE 10 MG TAB PO PRN (09:38)
[2021-04-03] MEDS: DOCUSATE SODIUM 100 MG GELCAP PO SCH (09:39)
[2021-04-03] MEDS: MAG SULF 2000 MG/WATER PREMIX 50 ML IV PRN (09:45)
[2021-04-03] MEDS ORDERED: KCL 20 MEQ/WATER INJ PREMIX 100 ML IV SCH (11:00)
[2021-04-03 12:00] VITALS: BP 112/69
[2021-04-03 12:21] LABS: ANION GAP 10.1 (8-16); CARBON DIOXIDE 31.3 mmol/L (21-32); POTASSIUM 3.4 mmol/L (3.5-5.1)
[2021-04-03] MEDS ORDERED: ONDA4TAB PO (13:51)
[2021-04-03] MEDS ORDERED: POTA10TE30 PO (13:51)
[2021-04-03] MEDS ORDERED: DOCU-299 PO (13:53)
[2021-04-03] MEDS: NACL 0.45% 1,000 ML IV SCH (14:15)
[2021-04-03] MEDS: MORPHINE SULFATE 2 MG/ML SYR IVP PRN (14:31)
[2021-04-03 15:10] VITALS: BP 112/72
== END 2021-04-03 16:15 | disposition home or self-care (01) ==
LOC: MED 02:36 → MTU 07:05
PROVIDERS: ADMIT Hospitalist; ATTEND Hospitalist
DX: K52.9 Noninfective gastroenteritis and colitis, unspecified (principal); Z20.822 Contact with and (suspected) exposure to COVID-19; E87.6 Hypokalemia; E83.42 Hypomagnesemia; K21.9 Gastro-esophageal reflux disease without esophagitis; I12.9 Hypertensive chronic kidney disease with stage 1 through stage 4 chronic kidney disease, or unspecified chronic kidney disease; N18.9 Chronic kidney disease, unspecified; D63.1 Anemia in chronic kidney disease; M54.5 Low back pain; G89.29 Other chronic pain; N83.202 Unspecified ovarian cyst, left side; Z98.1 Arthrodesis status; Z87.891 Personal history of nicotine dependence; Z79.899 Other long term (current) drug therapy
CPT/HCPCS: 36415; 74177; 76705; 76830; 80048; 80053; 81003; 83690; 83735; 84100; 84484; 85025; 85610; 87081; 87426; 93005; 96361; 96365; 96366; 96368; 96372; 96375; 96376; 99285; C9113; G0378; J1644; J1885; J2001; J2270; J2405; J3475; J3480; J7030; Q9967

== ENCOUNTER 2022-09-22 16:03 | Emergency (ER) | payer OTHER ==
[~2022-09-22] VITALS: Ht 162.6 cm; Wt 78.5 kg
[~2022-09-22 16:03] MED LIST changes: -ALBU0.0912 IH; +FURO-572 PO; -METH-1866 PO; -METO25TE2 PO; -METPCK PO; +OMEP-278 PO; -OMEP20TC12 PO; +ONDA4TAB PO; +POTA10TA70 PO; -POTA10TE30 PO; -PRAZ1CAP PO; -SIME80CT27 PO; -SUCR1TAB56 PO
[2022-09-22 17:14] VITALS: BP 126/70
[2022-09-22] MEDS ORDERED: CYCL-711 PO (20:00)
[2022-09-22 20:08] VITALS: BP 120/72
--- NOTE | 2022-09-22 20:08 | NUR ---
Patient discharged with v/s stable. Written and verbal after care instructions given and explained. Patient alert, oriented and verbalized understanding of instructions. Ambulatory with steady gait. All questions addressed prior to discharge. ID band removed. Patient advised to follow up with PMD. Rx of FLEXERIL given. Patient educated on indication of medication including possible reaction and side effects. Opportunity to ask questions provided and answered.
== END 2022-09-22 20:08 | disposition home or self-care (01) ==
LOC: MED 16:03
DX: S46.001A Unspecified injury of muscle(s) and tendon(s) of the rotator cuff of right shoulder, initial encounter (principal); K21.9 Gastro-esophageal reflux disease without esophagitis; I10 Essential (primary) hypertension; Z79.899 Other long term (current) drug therapy; X58.XXXA Exposure to other specified factors, initial encounter; Y93.89 Activity, other specified; Y92.89 Other specified places as the place of occurrence of the external cause; Y99.8 Other external cause status
CPT/HCPCS: 73030; 99283

== ENCOUNTER 2023-06-17 11:32 | Inpatient (IN) | payer OTHER ==
[~2023-06-17] VITALS: Ht 162.6 cm; Wt 78.9 kg
[~2023-06-17 11:32] MED LIST changes: +CYCL-711 PO
[2023-06-17 11:59] VITALS: BP 81/52; PULSE 87; RESP 17; TEMP 97.4; O2SAT 98
[2023-06-17] MEDS ORDERED: PANTOPRAZOLE 40 MG INJ VIAL IVP ONE (12:10)
[2023-06-17] MEDS ORDERED: NACL 0.9% 1,000 ML IV ONE (12:10)
[2023-06-17 13:05] LABS: INR 1.05 (0.8-1.2)
[2023-06-17 13:12] LABS: ALANINE AMINOTRANSFERASE 18 U/L (12-78); ALBUMIN 2.6 g/dL (3.4-5.0); ALKALINE PHOSPHATASE 54 U/L (50-136); ANION GAP 11.1 (8-16); ASPARTATE AMINOTRANSFERASE 19 U/L (15-37); CARBON DIOXIDE 28.3 mmol/L (21-32); CHLORIDE 106 mmol/L (98-107); CREATININE 1.1 mg/dL (0.6-1.3); GFR ARICAN-AMERICAN 64 mL/min (>90); GFR NON ARICAN-AMERICAN 53 mL/min (>90); GLUCOSE 117 mg/dL (74-106); LIPASE 74 U/L (73-393); MAGNESIUM 1.8 mg/dL (1.8-2.4); PHOSPHORUS 4.1 mg/dL (2.5-4.9); POTASSIUM 4.4 mmol/L (3.5-5.1); SODIUM SERUM 141 mmol/L (136-145); TOTAL BILIRUBIN 0.2 mg/dL (0.0-1.0); TOTAL PROTEIN, SERUM 5.8 g/dL (6.4-8.2); UREA NITROGEN, BLOOD 52 mg/dL (7-18)
[2023-06-17 13:43] LABS: BASOPHILS % (AUTO) 0.4 % (0.0-2.0); EOSINOPHILS % (AUTO) 0.4 % (0.0-4.0); LYMPHOCYTES # (AUTO) 1.2 K/uL (2.5-16.5); LYMPHOCYTES % (AUTO) 11.7 % (20.5-51.1); MEAN CORPUSCULAR HEMOGLOBIN 32 pg (27-31); MEAN CORPUSCULAR HGB CONC 33 g/dL (33-37); MEAN CORPUSCULAR VOLUME 96.6 fL (80-94); MONOCYTES # (AUTO) 0.8 K/uL (0.8-1.0); MONOCYTES % (AUTO) 7.8 % (1.7-9.3); NEUTROPHILS # (AUTO) 7.9 K/uL (1.8-7.7); NEUTROPHILS % (AUTO) 79.7 % (42.2-75.2); PLATELET COUNT (AUTO) 281 K/uL (140-450); RED BLOOD CELL COUNT(AUTO) 1.96 MIL/uL (4.20-5.40); RED CELL DISTRIBUTION WIDTH 15.6 % (11.6-13.7); WHITE BLOOD COUNT (AUTO) 9.9 K/uL (4.8-10.8)
[2023-06-17 13:54] LABS: HEMATOCRIT 18.9 % (36-48); HEMOGLOBIN 6.2 g/dL (12.0-16.0)
[2023-06-17] MEDS ORDERED: ATEN100T6 PO (15:41)
[2023-06-17 16:09] VITALS: O2SAT 97
[2023-06-17] MEDS ORDERED: ZOLPIDEM 5 MG TAB PO PRN (18:20)
[2023-06-17] MEDS ORDERED: ONDANSETRON 4 MG/2 ML VIAL IVP PRN (18:20)
[2023-06-17] MEDS ORDERED: LORazepam 1 MG TAB PO PRN (18:20)
[2023-06-17] MEDS ORDERED: ACETAMINOPHEN 325 MG TAB PO PRN (18:20)
[2023-06-17] MEDS: DEXT 5% / NACL 0.45% 1,000 ML IV SCH (20:48)
[2023-06-17] MEDS: HYDROcodone/APAP 5/325 MG 1 TAB TAB PO PRN (20:48)
[2023-06-17] MEDS ORDERED: WATER STERILE 10 ML MC ONE (21:19)
[2023-06-17] MEDS: PANTOPRAZOLE 40 MG INJ VIAL IVP SCH (21:21)
[2023-06-17 21:36] LABS: APPEARANCE,URINE CLEAR (CLEAR); BILIRUBIN,URINE NEGATIVE (NEGATIVE); BLOOD, URINE NEGATIVE (NEGATIVE); COLOR,URINE YELLOW (YELLOW); LEUKOCYTE ESTERASE ,URINE NEGATIVE (NEGATIVE); NITRITE, URINE NEGATIVE (NEGATIVE); PH,URINE 6.5 (5.0-9.0); PROTEIN,URINE NEGATIVE (NEGATIVE); UGLUCOSE NEGATIVE (NEGATIVE); UROBILINOGEN,URINE 0.2 EU/dL (0.2 - 1)
[2023-06-17 22:45] VITALS: BP 154/80; PULSE 77; RESP 18; TEMP 97.2; O2SAT 97
[2023-06-18] VITALS (8 sets, daily range): BP systolic 112–153; BP diastolic 62–81; PULSE 67–80; RESP 16–18; TEMP 97.2–98.9; O2SAT 95–100
[2023-06-18 07:21] LABS: BASOPHILS # (AUTO) 0.1 K/uL (0.00-0.22); BASOPHILS % (AUTO) 0.5 % (0.0-2.0); EOSINOPHILS # (AUTO) 0.1 K/uL (0-0.4); EOSINOPHILS % (AUTO) 0.5 % (0.0-4.0); HEMATOCRIT 20.4 % (36-48); LYMPHOCYTES # (AUTO) 1.6 K/uL (2.5-16.5); LYMPHOCYTES % (AUTO) 14.5 % (20.5-51.1); MEAN CORPUSCULAR HEMOGLOBIN 32 pg (27-31); MEAN CORPUSCULAR HGB CONC 34 g/dL (33-37); MEAN CORPUSCULAR VOLUME 94.1 fL (80-94); NEUTROPHILS # (AUTO) 8.5 K/uL (1.8-7.7); NEUTROPHILS % (AUTO) 75.5 % (42.2-75.2); PLATELET COUNT (AUTO) 219 K/uL (140-450); RED BLOOD CELL COUNT(AUTO) 2.17 MIL/uL (4.20-5.40); RED CELL DISTRIBUTION WIDTH 16.5 % (11.6-13.7); WHITE BLOOD COUNT (AUTO) 11.2 K/uL (4.8-10.8)
[2023-06-18 07:26] LABS: HEMOGLOBIN 6.9 g/dL (12.0-16.0)
[2023-06-18 07:28] LABS: ALBUMIN 2.5 g/dL (3.4-5.0); ANION GAP 10.5 (8-16); CALCIUM 7.7 mg/dL (8.5-10.1); CARBON DIOXIDE 25.8 mmol/L (21-32); CREATININE 0.9 mg/dL (0.6-1.3); MAGNESIUM 1.8 mg/dL (1.8-2.4); PHOSPHORUS 2.7 mg/dL (2.5-4.9); POTASSIUM 3.3 mmol/L (3.5-5.1); TOTAL BILIRUBIN 0.7 mg/dL (0.0-1.0); TOTAL PROTEIN, SERUM 5.3 g/dL (6.4-8.2)
[2023-06-18] MEDS: DOCUSATE SODIUM 100 MG GELCAP PO SCH (09:00)
[2023-06-18] MEDS: PANTOPRAZOLE 40 MG INJ VIAL IVP SCH ×2 (09:52→21:44)
[2023-06-18] MEDS: HYDROcodone/APAP 5/325 MG 1 TAB TAB PO PRN ×2 (10:58→21:53)
[2023-06-18] MEDS: DEXT 5% / NACL 0.45% 1,000 ML IV SCH (10:59)
[2023-06-18] MEDS ORDERED: fentaNYL citrate 0.05 MG/ML VIAL ONE (12:45)
[2023-06-18] MEDS ORDERED: MIDAZOLAM 5 MG/5 ML VIAL ONE (12:45)
[2023-06-19] MEDS: DEXT 5% / NACL 0.45% 1,000 ML IV SCH ×2 (03:43→09:32)
[2023-06-19 04:00] VITALS: BP 111/53; PULSE 74; RESP 18; TEMP 97.2; O2SAT 96
[2023-06-19 06:44] LABS: BASOPHILS % (AUTO) 0.4 % (0.0-2.0); EOSINOPHILS # (AUTO) 0.1 K/uL (0-0.4); EOSINOPHILS % (AUTO) 1.5 % (0.0-4.0); HEMATOCRIT 22.4 % (36-48); HEMOGLOBIN 7.7 g/dL (12.0-16.0); LYMPHOCYTES # (AUTO) 1.3 K/uL (2.5-16.5); LYMPHOCYTES % (AUTO) 16.3 % (20.5-51.1); MEAN CORPUSCULAR HEMOGLOBIN 32 pg (27-31); MEAN CORPUSCULAR HGB CONC 35 g/dL (33-37); MEAN CORPUSCULAR VOLUME 93.3 fL (80-94); MONOCYTES # (AUTO) 0.8 K/uL (0.8-1.0); MONOCYTES % (AUTO) 9.5 % (1.7-9.3); NEUTROPHILS # (AUTO) 5.8 K/uL (1.8-7.7); NEUTROPHILS % (AUTO) 72.3 % (42.2-75.2); PLATELET COUNT (AUTO) 217 K/uL (140-450); RED CELL DISTRIBUTION WIDTH 15.8 % (11.6-13.7); WHITE BLOOD COUNT (AUTO) 8.1 K/uL (4.8-10.8)
[2023-06-19 06:46] LABS: ALBUMIN 2.5 g/dL (3.4-5.0); ANION GAP 11.9 (8-16); CALCIUM 7.6 mg/dL (8.5-10.1); CARBON DIOXIDE 25.3 mmol/L (21-32); CREATININE 0.9 mg/dL (0.6-1.3); MAGNESIUM 1.7 mg/dL (1.8-2.4); PHOSPHORUS 3.4 mg/dL (2.5-4.9); POTASSIUM 3.2 mmol/L (3.5-5.1); TOTAL BILIRUBIN 0.2 mg/dL (0.0-1.0); TOTAL PROTEIN, SERUM 5.4 g/dL (6.4-8.2)
[2023-06-19 08:00] VITALS: BP 130/61; PULSE 73; RESP 18; TEMP 98; O2SAT 98
[2023-06-19] MEDS: PANTOPRAZOLE 40 MG INJ VIAL IVP SCH (09:33)
[2023-06-19] MEDS: DOCUSATE SODIUM 100 MG GELCAP PO SCH (09:33)
[2023-06-19] MEDS ORDERED: PANT40EC PO (10:23)
[2023-06-19] MEDS ORDERED: POTASSIUM CHLORIDE 10 MEQ TABER PO SCH (10:30)
[2023-06-19] MEDS ORDERED: MAGNESIUM OXIDE 400 MG TAB PO SCH (10:30)
[2023-06-19 13:48] VITALS: BP 130/61; PULSE 73; RESP 18; TEMP 98
[2023-06-19 16:00] VITALS: BP 136/75; PULSE 83; RESP 18; TEMP 97.9; O2SAT 98
== END 2023-06-19 17:30 | disposition home or self-care (01) | DRG 369 ==
LOC: MED 11:32 → MMU 18:15 → MTU 20:58
PROVIDERS: ADMIT Hospitalist; ATTEND Hospitalist
PROC: 30233N1 Transfusion of Nonautologous Red Blood Cells into Peripheral Vein, Percutaneous Approach (ICD-10-PCS; 2023-06-17)
PROC: 0DJ08ZZ Inspection of Upper Intestinal Tract, Via Natural or Artificial Opening Endoscopic (ICD-10-PCS; principal; 2023-06-18 12:30)
DX: K22.6 Gastro-esophageal laceration-hemorrhage syndrome (principal); D62 Acute posthemorrhagic anemia; E44.1 Mild protein-calorie malnutrition; I10 Essential (primary) hypertension; E78.5 Hyperlipidemia, unspecified; K44.9 Diaphragmatic hernia without obstruction or gangrene; K25.9 Gastric ulcer, unspecified as acute or chronic, without hemorrhage or perforation; H40.9 Unspecified glaucoma; K21.9 Gastro-esophageal reflux disease without esophagitis; G89.29 Other chronic pain; Z79.899 Other long term (current) drug therapy; Z68.29 Body mass index [BMI] 29.0-29.9, adult
CPT/HCPCS: 36415; 36430; 71045; 80053; 81003; 83605; 83690; 83735; 84100; 84484; 85025; 85610; 86886; 86900; 86901; 86920; 87040; 87081; 93005; 96374; 99291; C9113; J2250; J3010; P9016